=== PATIENT | male | born 1960 | race Two or more races ===

== ENCOUNTER 2017-09-05 10:48 | Outpatient (CLI) | payer OTHER ==
[~2017-09-05 10:48] MED LIST: AVANDARYL 4 MG-1 TA2 PO; DIOVAN HCT 161 UDTAB PO; LOTREL 5-10 MG1 CAP PO; METFORMIN HCL850 MG PO; TRICOR145 MG PO
== END 2017-09-05 10:55 | disposition home or self-care (01) ==
LOC: LAB 10:48
DX: K85.20 Alcohol induced acute pancreatitis without necrosis or infection (principal); Z51.81 Encounter for therapeutic drug level monitoring

== ENCOUNTER 2017-09-07 07:26 | Outpatient (CLI) | payer OTHER | END 2017-09-07 12:15 | disposition home or self-care (01) | LOC: MRI 07:26 | DX: K85.20 Alcohol induced acute pancreatitis without necrosis or infection (principal); Q45.3 Other congenital malformations of pancreas and pancreatic duct | CPT/HCPCS: 72197; 74183; A9579; 72196; 74182 ==

== ENCOUNTER 2017-09-21 07:11 | Outpatient (CLI) | payer OTHER | END 2017-09-21 07:14 | disposition home or self-care (01) | LOC: NUCLEAR 07:11 | DX: R07.89 Other chest pain (principal); I10 Essential (primary) hypertension; R94.31 Abnormal electrocardiogram [ECG] [EKG] | CPT/HCPCS: 78452; 93017; A9500; J0153 ==

== ENCOUNTER 2021-03-25 09:15 | Outpatient (CLI) | payer OTHER | END 2021-03-25 09:21 | disposition home or self-care (01) | LOC: TOM 09:15 | PROVIDERS: ATTEND Specialist | DX: N20.0 Calculus of kidney (principal); K85.10 Biliary acute pancreatitis without necrosis or infection ==

== ENCOUNTER 2021-05-09 10:32 | Outpatient (CLI) | payer OTHER | END 2021-05-09 10:38 | disposition home or self-care (01) | LOC: RAD 10:32 | PROVIDERS: ATTEND Specialist | DX: J45.998 Other asthma (principal) ==

== ENCOUNTER 2022-02-02 11:03 | Outpatient (CLI) | payer OTHER | END 2022-02-02 11:07 | disposition home or self-care (01) | LOC: SONOGRAMA 11:03 | PROVIDERS: ATTEND Pathology Anatomic Pathology & Clinical Pathology | DX: E04.2 Nontoxic multinodular goiter (principal); E04.1 Nontoxic single thyroid nodule; D34 Benign neoplasm of thyroid gland ==